=== PATIENT | female | born 1970 | race Caucasian/White ===

== ENCOUNTER 2018-10-25 23:51 | Emergency (ER) | payer SELFPAY ==
[~2018-10-25] VITALS: Ht 167.6 cm; Wt 95.0 kg
[2018-10-26] MEDS ORDERED: DIPHENHYDRAMINE 50MG/ML VIAL IM ONE (01:30)
[2018-10-26] MEDS ORDERED: METHYLPREDNISOLONE SOD SUCC 125 MG/2 ML VIAL IM ONE (01:30)
[2018-10-26] MEDS ORDERED: FAMOTIDINE 20MG TABLET PO ONE (01:30)
[2018-10-26 02:01] VITALS: BP 119/58
== END 2018-10-26 02:02 | disposition home or self-care (01) ==
LOC: ER 23:51
DX: L50.0 Allergic urticaria (principal); J45.909 Unspecified asthma, uncomplicated; F17.200 Nicotine dependence, unspecified, uncomplicated; Z98.890 Other specified postprocedural states; Z88.6 Allergy status to analgesic agent
CPT/HCPCS: 81025; 96372; 99283; J1200; J2930